=== PATIENT | female | born 1990 | race African-American/Black ===

== ENCOUNTER 2017-01-18 19:51 | Emergency (ER) | payer MEDICAID ==
[~2017-01-18] VITALS: Ht 160 cm; Wt 72.1 kg
[2017-01-18] MEDS ORDERED: MEDROL4 M1 PO (20:38)
[2017-01-18] MEDS ORDERED: GABAPENTIN100 MG ORAL (20:38)
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
[2017-01-18 20:59] VITALS: BP 116/75
== END 2017-01-18 21:30 | disposition home or self-care (01) ==
LOC: EMR 21:28
DX: G56.82 Other specified mononeuropathies of left upper limb (principal)
CPT/HCPCS: 99284